=== PATIENT | male | born 1975 | race Two or more races ===

== ENCOUNTER → 2020-10-13 | Outpatient (CLI) | payer OTHER | END | disposition home or self-care (01) | LOC: LAB SHORT 15:32 → LAB 15:32 | DX: N39.9 Disorder of urinary system, unspecified (principal) | CPT/HCPCS: 87086 ==

== ENCOUNTER → 2024-06-04 | Outpatient (CLI) | payer OTHER | END | disposition home or self-care (01) | LOC: LAB SHORT 15:52 → LAB 15:52 | DX: N39.0 Urinary tract infection, site not specified (principal); R90.0 Intracranial space-occupying lesion found on diagnostic imaging of central nervous system | CPT/HCPCS: 87086 ==